=== PATIENT | female | born 1945 | race Caucasian/White ===

== ENCOUNTER → 2018-12-06 13:42 | Outpatient (CLI) | payer SELFPAY ==
[2018-12-12 11:27] LABS: HPV APTIMA, High Risk Negative (Negative)
== END ==
PROVIDERS: Visit Provider Obstetrics & Gynecology
DX: Z12.4 Encounter for screening for malignant neoplasm of cervix (principal)
CPT/HCPCS: 87624; 88175; G0145

== ENCOUNTER → 2019-08-08 16:15 | Outpatient (CLI) | payer SELFPAY ==
--- NOTE | 2019-08-08 12:30 | POL_PTH ---
PATIENT: JOSAFAT GROSSMAN LOC: [facility] U#:[id number] AGE/SX: 80/F ROOM: RE08/08/[address]: Dr. Nakita Villaseñor MD : 1945 BED: DIS: SPEC #: [id number] RECD: 08/08/19 16:10 STATUS: LEO OBDULIA #: [id number] JAI: 08/08/19 12:[address]: Nakita Urbina DEPT: SURGICAL PATHOLOGY RECD BY: Yang Ferreira Tissues: Vagina, NOS Procedures: Surgery Specimen Level IV HEADER OPERATION: Polypectomy PRE-OP DIAGNOSIS: Vaginal polyp TISSUE SUBMITTED: Vaginal polyp MICROSCOPIC DIAGNOSIS Vaginal polyp, polypectomy: Fragments of squamous mucosa with acute and chronic inflammation and granulation tissue reaction. SJ:tera 08/12/19 MICROSCOPIC DESCRIPTION Slides are reviewed. GROSS DESCRIPTION Received is one container labeled with the patient's name and not further designated. The specimen consists of multiple irregular fragments of pink-alvarez soft tissue that in aggregate measure 1 x 0.6 x 0.1 cm. The specimen is totally submitted in one cassette. / AM:tera 08/11/19 TC:2 CPT: 45171
== END ==
PROVIDERS: Referring Provider Obstetrics & Gynecology; Visit Provider Obstetrics & Gynecology
DX: N84.2 Polyp of vagina (principal)
CPT/HCPCS: 88305

== ENCOUNTER → 2020-07-23 14:51 | Outpatient (CLI) | payer SELFPAY ==
[2020-07-23 14:14] VITALS: BMI 34.0
--- NOTE | 2020-07-23 14:56 | ECHOD_ITS ---
Reason For Study: PRE-OP, HTN Procedure This was a 2D Doppler, Color Flow transthoracic echocardiogram. Exam performed in department. Left Ventricle Normal LV size. Left ventricular systolic function is normal. The estimated ejection fraction is 60 %. Stage 1 diastolic dysfunction. No regional wall motion abnormalities noted. Right Ventricle Normal RV size. Normal systolic function. Atria Normal left atrium. Normal right atrium. Mitral Valve Normal mitral valve. Mild (1+) eccentric mitral valve insufficiency. Tricuspid Valve Normal tricuspid valve. Mild (1+) tricuspid valve insufficiency. Pulmonary artery systolic pressure is 34 mmHg. Aortic Valve Normal aortic valve. Trisinus/trileaflet aortic valve. Pulmonic Valve Normal pulmonic valve. Great Vessels Normal aortic root. The pulmonary artery is normal size. Normal inferior vena cava. Pericardium/Pleural No pericardial effusion. MMode/2D Measurements & Calculations LVIDd: 4.9 cm IVSd: 0.75 cm Ao root diam: 3.1 cm LVIDs: 3.2 cm LVPWd: 0.90 cm RVDd: 3.3 cm FS: 34.8 % LAV(MOD-bp): 51.5 ml LVAd ap4: 28.4 cm2 SV(MOD-sp4): 47.7 ml LAV(MOD-bp) Indexed: 26.5 ml/m2 EDV(MOD-sp4): 88.2 ml LAV(MOD-sp2): 51.5 ml EDV(sp4-el): 90.8 ml LAV(MOD-sp4): 43.8 ml LVAs ap4: 16.9 cm2 ESV(MOD-sp4): 40.5 ml ESV(sp4-el): 41.7 ml EF(MOD-sp4): 54.1 % EF(sp4-el): 54.1 % SV(sp4-el): 49.1 ml LA A4 area: 15.6 cm2 LA dimension(2D): 3.7 cm RA A4 area: 14.4 cm2 Time Measurements MV dec time: 0.28 sec Doppler Measurements & Calculations MV E max jono: 76.1 cm/sec Lat Peak E' Jono: 5.2 cm/sec Med Peak E' Jono: 6.5 cm/sec MV A max jono: 115.0 cm/sec E/E' lat: 14.7 E/E' med: 11.8 MV E/A: 0.66 Ao V2 max: 136.3 cm/sec LV V1 max: 94.3 cm/sec PA V2 max: 103.1 cm/sec Ao max P.4 mmHg LV V1 max P.6 mmHg PI end-d jono: 85.7 cm/sec TR max jono: 273.9 cm/sec TR max P.0 mmHg Interpretation Summary Normal LV size. Left ventricular systolic function is normal. The estimated ejection fraction is 60 %. Stage 1 diastolic dysfunction. Mild (1+) eccentric mitral valve insufficiency. Pulmonary artery systolic pressure is 34 mmHg. Ordering Physician: Sam Winn Referring Physician: DOMENIC CROWDER Performed By: Rand Aparicio RDCS
== END ==
PROVIDERS: PCP Family Medicine; Referring Provider Internal Medicine Cardiovascular Disease; Visit Provider Internal Medicine Cardiovascular Disease
DX: Z01.810 Encounter for preprocedural cardiovascular examination (principal); R03.0 Elevated blood-pressure reading, without diagnosis of hypertension
CPT/HCPCS: 93306

== ENCOUNTER → 2020-08-09 11:37 | Outpatient (CLI) | payer SELFPAY, OTHER ==
[2020-07-23 14:14] VITALS: BMI 34.0
--- NOTE | 2020-08-09 11:43 | VDLE_ITS ---
Reason For Study: PAIN S/ TKR RIGHT GSV is normal. CFV is compressible, spontaneous, phasic, competent and demonstrates normal augmentation. FV is compressible, spontaneous, phasic, competent and demonstrates normal augmentation. POP V is compressible, spontaneous, phasic, competent and demonstrates normal augmentation. T/P Trunk is compressible. PTV is compressible. RT PerV is compressible. Proximal calf veins were difficult to assess due to sweeling s/p TKR. Procedure Exam performed in department. A preliminary report was called and/or faxed to [facility]. Interpretation Summary There is no evidence of right lower extremity deep vein thrombosis. Right great saphenous vein appears patent and compressible segmentally. Limited visualization of the right proximal calf veins secondary to swelling. Ordering Physician: Juan Sandoval Referring Physician: DOMENIC CROWDER Performed By: Felicia FITCH, Emmie GARCIA and Student
== END ==
PROVIDERS: PCP Family Medicine; Referring Provider Physician Assistant Surgical; Visit Provider Physician Assistant Surgical
DX: M79.661 Pain in right lower leg (principal)
CPT/HCPCS: 93971

== ENCOUNTER → 2021-10-20 12:24 | Outpatient (CLI) | payer SELFPAY, OTHER ==
--- NOTE | 2021-10-20 12:50 | MRI_ITS ---
Examination: MRI of the pelvis. INDICATION: Question urethral diverticulum. TECHNIQUE: Multisequence multiplanar MRI of the pelvis was obtained pre and postcontrast administration. COMPARISON: None FINDINGS: The bladder is within normal limits. There is a pessary in place. There are diverticula arising from the visualized colon. No discrete solid or cystic masses are seen. No urethral diverticulum is seen. There are left vulvar varicosities. IMPRESSION. Left vulvar varicosities. Colonic diverticulosis. Electronically Signed: Charity Bullard MD at 15:22 EST Tel , Service support , MRI/Pelvis W/WO Contrast
[2021-10-20 13:00] LABS: CREATININE FINGERSTICK < 0.6 mg/dL (0.55-1.02); EGFR FINGERSTICK > 60.0000 mL/min (>60)
== END ==
PROVIDERS: PCP Family Medicine; Visit Provider Urology
DX: N36.1 Urethral diverticulum (principal)
CPT/HCPCS: 72197; A9575